=== PATIENT | female | born 1970 | race Caucasian/White ===

== ENCOUNTER 2017-07-05 08:57 | Emergency (ER) | payer SELFPAY ==
[~2017-07-05] VITALS: Ht 165.1 cm; Wt 81.6 kg
[2017-07-05] MEDS ORDERED: HYDROCODONE/APAP 5MG-325MG TAB PO ONE (09:15)
--- NOTE | 2017-07-05 10:11 | Diagnostic Imaging Report ---
PROCEDURE: Frontal and lateral views of the chest. COMPARISON: None. INDICATIONS: CHEST PAIN FINDINGS: Lines/tubes: None. Lungs: The lungs are well inflated and clear. There is no evidence of pneumonia or pulmonary edema. Pleura: There is no pleural effusion or pneumothorax. Heart and mediastinum: The heart and the mediastinum are normal. Bones: No acute bony abnormality. Degenerative changes of the thoracic spine. IMPRESSION: No acute radiographic abnormality. Dictated by: Vj Franco M.D. on 07/05/2017 at 10:11 Electronically approved by: Vj Franco M.D. on 07/05/2017 at 10:11
[2017-07-05 13:38] LABS: BASOPHILS # (AUTO) 0.1 (0.0-0.1); BASOPHILS % 0.8 % (0.0-1.0); EOSINOPHILS # (AUTO) 0.2 (0.0-0.4); EOSINOPHILS % 2.5 % (0.0-6.0); HEMATOCRIT 43.7 % (34.2-44.1); HEMOGLOBIN 14.9 g/dL (12.0-16.0); LYMPHOCYTES # (AUTO) 2.3 (1.0-3.2); LYMPHOCYTES % 29.5 % (18.0-39.1); MEAN CORPUSCULAR HEMOGLOBIN 31.1 pg (28-32); MEAN CORPUSCULAR HGB CONC 34.1 g/dL (31-35); MEAN CORPUSCULAR VOLUME 91.2 fL (81-99); MONOCYTES # (AUTO) 0.7 (0.2-0.8); MONOCYTES % 9.7 % (4.4-11.3); NEUTROPHILS # (AUTO) 4.4 (2.1-6.9); NEUTROPHILS % 57.1 % (38.7-80.0); PLATELET COUNT 350 x10e3/uL (140-360); RED BLOOD COUNT 4.79 x10e6/uL (3.6-5.1); RED CELL DISTRIBUTION WIDTH 11.9 % (11.7-14.4)
[2017-07-05 13:54] LABS: ALANINE AMINOTRANSFERASE 27 IU/L (0-55); ALBUMIN 3.7 g/dL (3.5-5.0); ALBUMIN/GLOBULIN RATIO 0.8 (0.8-2.0); ALKALINE PHOSPHATASE 146 IU/L (40-150); ANION GAP 15.3 mmol/L (8-16); BLOOD UREA NITROGEN 11 mg/dL (7-26); BUN/CREATININE RATIO 13 (6-25); CALCIUM 9.3 mg/dL (8.4-10.2); CARBON DIOXIDE 27 mmol/L (22-29); CHLORIDE 100 mmol/L (98-107); CREATININE, SERUM 0.86 mg/dL (0.57-1.11); EST GLOMERULAR FILTRATION RATE > 60 ML/MIN (60-); GLUCOSE 309 mg/dL (74-118); SODIUM 137 mmol/L (136-145)
[2017-07-05 14:13] LABS: POTASSIUM 5.3 mmol/L (3.5-5.1)
[2017-07-05] MEDS ORDERED: KETOROLAC TROMETHAMINE 60 MG/2 ML VIAL IM ONE (15:00)
== END 2017-07-05 15:10 | disposition home or self-care (01) ==
LOC: ER 08:57
DX: R07.89 Other chest pain (principal); M94.0 Chondrocostal junction syndrome [Tietze]; F17.210 Nicotine dependence, cigarettes, uncomplicated
CPT/HCPCS: 36415; 71046; 80053; 84484; 85025; 93005; 99283; J1885

== ENCOUNTER 2018-03-03 14:58 | Emergency (ER) | payer SELFPAY ==
[~2018-03-03] VITALS: Ht 165.1 cm; Wt 77.1 kg
--- OUTSIDE RECORDS SUMMARY | 2018-03-03 15:01 | XMS REPORT ---
Author Author [facility] Address Unknown Phone Unavailable Care Team Providers Care Social Service Worker Name Role Phone Jason GALLO Unavailable Unavailable Problems This patient has no known problems. Allergies, Adverse Reactions, Alerts This patient has no known allergies or adverse reactions. Medications This patient has no known medications. Results Test Description Test Time Test Comments Text Results Atomic Results Result Comments CHEST 2 VIEWS [place] [address] Patient Name: KEENAN ROGERS MR #: [id number] : 1970 Age/Sex: 46/F Req #: [id number] Adm Physician: Ordered by: BEVERLEY GALLO MD Report #: [id number] Location: ER Room/Bed: Procedure: [id number] DX/CHEST 2 VIEWS Exam Date: 07/05/17 Exam Time: 904 REPORT STATUS: Signed PROCEDURE: Frontal and lateral views of the chest. COMPARISON: None. INDICATIONS: CHEST PAIN FINDINGS: Lines/tubes: None. Lungs: The lungs are well inflated and clear. There is no evidence of pneumonia or pulmonary edema. Pleura: There is no pleural effusion or pneumothorax. Heart and mediastinum: The heart and the mediastinum are normal. Bones: No acute bony abnormality. Degenerative changes of the thoracic spine. IMPRESSION: No acute radiographic abnormality. Dictated by: Amee Franco M.D. on 07/05/2017 at 10:11 Electronically approved by: Amee Franco M.D. on 07/05/2017 at 10:11 Dictated By: AMEE FRANCO MD 1011 Transcribed By: MISAEL on 07/05/17 1011 COPY TO: BEVERLEY GALLO MD
[2018-03-03] MEDS ORDERED: HYDROCODONE/APAP 10MG-325MG TAB PO ONE (15:15)
--- NOTE | 2018-03-03 16:26 | Diagnostic Imaging Report ---
EXAM: RIBS UNILAT W/CXR DATE: 03/03/2018 3:08 PM INDICATION: ^left rib pain s/p fall ^[id number] ^1600 ^Y rib pain COMPARISON: None FINDINGS: The heart is not enlarged. No pneumothorax identified. Patchy opacities are present in the lung bases. Left atrium ninth rib fractures noted. IMPRESSION: Left 8 and ninth rib fractures. Basilar opacities could represent atelectasis, contusion, or infectious process. Signed by: Dr. Cliff Fuller MD on 03/03/2018 4:23 PM
[2018-03-03 16:42] VITALS: BP 132/70
== END 2018-03-03 16:47 | disposition home or self-care (01) ==
LOC: ER 14:58
DX: S22.42XA Multiple fractures of ribs, left side, initial encounter for closed fracture (principal); S20.212A Contusion of left front wall of thorax, initial encounter; W01.0XXA Fall on same level from slipping, tripping and stumbling without subsequent striking against object, initial encounter; Y92.008 Other place in unspecified non-institutional (private) residence as the place of occurrence of the external cause; E11.9 Type 2 diabetes mellitus without complications
CPT/HCPCS: 71101; 81025; 99283

== ENCOUNTER 2018-03-16 20:23 | Observation (INO) | payer SELFPAY ==
[~2018-03-16] VITALS: Ht 165.1 cm; Wt 87.8 kg
[2018-03-16] MEDS ORDERED: CLINDAMYCIN 600MG / 50ML 50 ML IV ONE (20:45)
[2018-03-16] MEDS ORDERED: ONDANSETRON HCL INJ 2 MG/ML VIAL IV PRN (21:00)
[2018-03-16] MEDS: INSULIN REGULAR, HUMAN 100 UNIT/1 ML 3ML VIAL SQ SCH (21:00)
[2018-03-16] MEDS ORDERED: DEXTROSE 50% SYRINGE 50 ML IV PRN (21:00)
[2018-03-16] MEDS ORDERED: CLINDAMYCIN PHOS 900MG/ 50ML 50 ML IV SCH (22:00)
[2018-03-16] MEDS ORDERED: MORPHINE SULFATE INJ 4 MG/ML INJ IV PRN (22:00)
[2018-03-16 22:23] VITALS: BP 130/74
[2018-03-16] MEDS: SODIUM CHLORIDE 0.9% 1000ML 1,000 ML IV SCH (23:14)
[2018-03-16] MEDS: VANCOMYCIN 1GM/NS 250 ML 250 ML IV SCH (23:14)
[2018-03-17] VITALS (8 sets, daily range): BP systolic 117–130; BP diastolic 56–74
[2018-03-17] MEDS: CLINDAMYCIN PHOS 900MG/ 50ML 50 ML IV SCH ×3 (05:12→22:00)
[2018-03-17 06:06] LABS: BASOPHILS # (AUTO) 0.1 (0.0-0.1); BASOPHILS % 0.8 % (0.0-1.0); EOSINOPHILS # (AUTO) 0.3 (0.0-0.4); HEMATOCRIT 36.7 % (34.2-44.1); HEMOGLOBIN 12.4 g/dL (12.0-16.0); LYMPHOCYTES # (AUTO) 2.1 (1.0-3.2); LYMPHOCYTES % 28.3 % (18.0-39.1); MEAN CORPUSCULAR HEMOGLOBIN 31.3 pg (28-32); MEAN CORPUSCULAR HGB CONC 33.8 g/dL (31-35); MEAN CORPUSCULAR VOLUME 92.7 fL (81-99); MONOCYTES % 13.2 % (4.4-11.3); NEUTROPHILS % 53.2 % (38.7-80.0); PLATELET COUNT 321 x10e3/uL (140-360); RED BLOOD COUNT 3.96 x10e6/uL (3.6-5.1); RED CELL DISTRIBUTION WIDTH 12.5 % (11.7-14.4)
[2018-03-17 06:24] LABS: ANION GAP 12.4 mmol/L (8-16); BLOOD UREA NITROGEN 11 mg/dL (7-26); BUN/CREATININE RATIO 14 (6-25); CALCIUM 8.8 mg/dL (8.4-10.2); CARBON DIOXIDE 25 mmol/L (22-29); CHLORIDE 103 mmol/L (98-107); CREATININE, SERUM 0.78 mg/dL (0.57-1.11); EST GLOMERULAR FILTRATION RATE > 60 ML/MIN (60-); GLUCOSE 191 mg/dL (74-118); POTASSIUM 4.4 mmol/L (3.5-5.1); SODIUM 136 mmol/L (136-145)
[2018-03-17] MEDS: INSULIN REGULAR, HUMAN 100 UNIT/1 ML 3ML VIAL SQ SCH ×4 (08:23→21:30)
[2018-03-17] MEDS: SODIUM CHLORIDE 0.9% 1000ML 1,000 ML IV SCH ×4 (11:11→23:00)
[2018-03-17] MEDS: VANCOMYCIN 1GM/NS 250 ML 250 ML IV SCH (21:00)
[2018-03-18] VITALS: BP 123/60
[2018-03-18 04:00] VITALS: BP 122/64
[2018-03-18] MEDS: CLINDAMYCIN PHOS 900MG/ 50ML 50 ML IV SCH (06:00)
[2018-03-18 08:00] VITALS: BP 123/68
[2018-03-18] MEDS: INSULIN REGULAR, HUMAN 100 UNIT/1 ML 3ML VIAL SQ SCH (08:00)
[2018-03-18 12:00] VITALS: BP 126/64
[2018-03-18] MEDS ORDERED: CIPRO500 MG PO (12:41)
[2018-03-18] MEDS ORDERED: DOXYCYCLINE HY100 MG PO (12:41)
--- NOTE | 2018-05-13 01:52 | Discharge Summary ---
CHIEF COMPLAINT: Cellulitis of right lower limb, diabetes. FINAL DIAGNOSES: Cellulitis of right ankle and foot, resolving and diabetes type 2. DISPOSITION: Home. HISTORY AND HOSPITAL COURSE: This is a 47-year-old female with known history of diabetes type 2, brought to the ER with a 1-week history of progressive swelling and redness and pain in the right foot and ankle area. She states that it started shortly after cutting herself while shaving her leg. Denies any fever, chills or any other complaints. In the ER, it was noted that her right ankle was diffusely swollen, ankle to foot. It was tender to touch and tender to palpate and with further review of lab and x-rays, the patient was admitted for care regarding swelling, pain, redness of right ankle and foot, cellulitis of right ankle and foot, and diabetes type 2. We will begin IV antibiotics, we will be monitoring and control her blood sugars during her stay. On the floor, she was receiving an ADA diet, resting comfortably. She was receiving a combination of vancomycin and clindamycin. Her sugars are being managed with insulin on a t.i.d. a.c. h.s. profile. Her laboratory studies were showing electrolytes to be stable. Kidney function stable. Glucose 191. CBC stable. Her swelling to the ankle and foot was decreasing. She was being cleared for discharge. She will be taken off her IV fluids, IV antibiotics and will be switched over to p.o. protocol. She was released home on 03/18/2018 in stable condition. With discharge, she will continue on her ADA diet. No equipment or supplies necessary. No drains or Foleys are needed. Activity level as directed by me. She has no documented PCP on her demographic sheet. She may follow up with me in my office within 1 to 2 weeks or choose a physician of her liking. She will be on Cipro 500 mg 1 tablet every 12 hours, also on doxycycline 100 mg twice a day. If she fails to see improving in her foot and ankle and her similar symptoms return, she will be reporting back to the emergency room. Dictated By: EDER Oviedo Job#: [id number] GAAna Maria
== END 2018-03-18 13:25 | disposition home or self-care (01) ==
LOC: FSED 20:23 → ERHOLD 20:51 → MED/SURG3 22:11
DX: L03.115 Cellulitis of right lower limb (principal); E11.65 Type 2 diabetes mellitus with hyperglycemia; S91.311A Laceration without foreign body, right foot, initial encounter; Y93.89 Activity, other specified; W26.8XXA Contact with other sharp object(s), not elsewhere classified, initial encounter
CPT/HCPCS: 36415 ×3; 80048; 82948 ×3; 85025; 87040; 96365; 99284; G0378 ×3; J1817 ×2; J2270; J2405; J3370 ×2; J7030 ×2

== ENCOUNTER 2019-11-10 20:58 | Emergency (ER) | payer SELFPAY ==
[~2019-11-10] VITALS: Ht 165.1 cm; Wt 83.9 kg
[~2019-11-10 20:58] MED LIST: CIPRO500 MG PO; DOXYCYCLINE HY100 MG PO
--- NOTE | 2019-11-10 21:53 | Emergency Department Note ---
History of Present Illnes History of Present Illness Chief Complaint: Skin Rash or Abscess History of Present Illness This is a 48 year old female reddness left foot x 3 days. Onset (how long ago): day(s) (3) Location: redness Quality: warm Radiation: Denies non-radiation, Denies back, Denies neck, Denies extremity, Denies abdomen, Denies periumbilical, Denies flank, Denies proximal, Denies distal, Denies other Severity: moderate Onset quality: gradual Duration (how long): day(s) (3) Timing of current episode: constant Progression: waxing and waning Chronicity: new Context: Denies recent illness, Denies recent surgery, Denies recent immobilization, Denies recent travel, Denies trauma/injury, Denies new medications, Denies hx of DVT/PE, Denies non-compliance w/ medications, Denies other Relieving factors: none Exacerbating factors: none Associated symptoms: Reports denies other symptoms Treatments prior to arrival: none Past Medical/Family History Physician Review I have reviewed the patient's past medical and family history. Any updates have been documented here. Past Medical History Past Medical History: Diabetes Other Medical History: type I DM ADHD Past Surgical History: T&A Other Surgery: OVARIAN CYST Social History Smoking Cessation: Current every day smoker Counseling Performed: Yes Alcohol Use: Occasional TB Exposure/Symptoms: No Physically hurt or threatened: No Other Last Tetanus: utd Any Pre-Existing Lines (PICC,: No Is patient up to date on immun: No Last Flu: NO Last Pneumovax: NO Review of Systems Review of Systems Constitutional: Reports no symptoms EENTM: Reports no symptoms Cardiovascular: Reports no symptoms Respiratory: Reports no symptoms Gastrointestinal: Reports no symptoms Genitourinary: Reports no symptoms Musculoskeletal: Reports no symptoms Integumentary: Reports as per HPI Neurological: Reports no symptoms Psychological: Reports no symptoms Endocrine: Reports no symptoms Hematological/Lymphatic: Reports no symptoms Physical Exam Related Data Allergies: Coded Allergies: No Known Allergies (Unverified , 03/03/18) Vital signs reviewed: Yes Physical Exam CONSTITUTIONAL Constitutional: Present well-developed, Present well-nourished HENT HENT: Present normocephalic, Present atraumatic, Present oropharynx clear/moist, Present nose normal HENT L/R: Present left ext ear normal, Present right ext ear normal EYES Eyes: Reports PERRL, Reports conjunctivae normal NECK Neck: Present ROM normal PULMONARY Pulmonary: Present effort normal, Present breath sounds normal CARDIOVASCULAR Cardiovascular: Present regular rhythm, Present heart sounds normal, Present capillary refill normal, Present normal rate GASTROINTESTINAL Abdominal: Present soft, Present nontender, Present bowel sounds normal GENITOURINARY Genitourinary: Present exam deferred SKIN Skin: Present warm, Present dry, Present erythema (left heel) MUSCULOSKELETAL Musculoskeletal: Present ROM normal NEUROLOGICAL Neurological: Present alert, Present oriented x 3, Present no gross motor or sensory deficits PSYCHOLOGICAL Psychological: Present mood/affect normal, Present judgement normal Assessment & Plan Medical Decision Making MDM cellulitis erluis alfredoilas Reassessment Reassessment time: 21:51 Reassessment better Assessment & Plan Final Impression: (1) Cellulitis Depart Disposition: HOME, SELF-CARE Last Vital Signs refused lab work x ray and doppler Home Meds Reported Medications Ciprofloxacin Hcl (CIPRO) 500 Mg Tablet, 500 MG PO Q12H, #30 TAB 03/18/18 Doxycycline Hyclate (DOXYCYCLINE HYCLATE) 100 Mg Capsule, 100 MG PO BID, CAP 03/18/18 STAR ROCHE MD Nov 10, 2019 21:53
== END 2019-11-10 22:00 | disposition home or self-care (01) ==
LOC: FSED 20:58
DX: L03.116 Cellulitis of left lower limb (principal); E11.9 Type 2 diabetes mellitus without complications; F17.210 Nicotine dependence, cigarettes, uncomplicated
CPT/HCPCS: 99282